=== PATIENT | male | born 1990 | race Caucasian/White ===

== ENCOUNTER 2022-08-18 10:48 | Outpatient (CLI) | payer BC, OTHER, SELFPAY ==
[2022-08-18 16:49] LABS: Basophils Percent Auto 0.5 % (0.2-1.2); Eosinophils Absolute Auto 0.1 K/mm3 (0-0.3); Hemoglobin 16.1 g/dL (14.0-18.0); Immature Granulocyte Absolute 0.01 K/mm3 (0.00-0.031); Immature Granulocyte Percent A 0.2 % (0-0.5); Lymphocytes Absolute Auto 2.22 K/mm3 (0.9-3.2); Lymphocytes Percent Auto 33.9 % (18.3-44.2); Mean Corpuscular HGB Conc 32.9 g/dl (32-36); Mean Corpuscular Hemoglobin 29.1 pg (26-34); Mean Corpuscular Volume 88.6 fl (80-100); Mean Platelet Volume 10.8 fl (7.4-10.4); Monocytes Absolute Auto 0.7 K/mm3 (0.1-0.6); Monocytes Percent Auto 10.2 % (2.6-8.5); Neutrophils Absolute Auto 3.5 K/mm3 (1.3-6.7); Neutrophils Percent Auto 53.2 % (45.5-73.1); Platelet Count Result 253 k/mm3 (150-375); Red Blood Count 5.53 M/mm3 (4.6-6.20); Red Cell Distribution Width 12.7 % (11.5-14.5); White Blood Count 6.5 K/mm3 (4.5-10.0)
[2022-08-18 17:43] LABS: Alanine Aminotransferase 25 U/L (6-50); Albumin Level 4.6 g/dL (3.5-5.1); Alkaline Phosphatase 64 U/L (38-126); Anion Gap 8 mmol/L (8-16); Aspartate Amino Transferase 46 U/L (17-59); Bilirubin,Total 0.8 mg/dL (0.2-1.3); Blood Urea Nitrogen 20 mg/dL (9-20); Calcium 9.2 mg/dL (8.4-10.2); Carbon Dioxide 31 mmol/L (22-30); Chloride 102 mmol/L (98-107); Cholesterol 189 mg/dL (0-200); Estimated Glomerular Filt Rate > 60; Glucose 78 mg/dL (65-110); HDL Direct 39 mg/dL; Potassium 4.7 mmol/L (3.4-5.0); Sodium 141 mmol/L (137-145); Triglycerides 155 mg/dL (<150)
[2022-08-18 17:54] LABS: LDL Cholesterol Direct 105 mg/dL
[2022-08-18 18:01] LABS: Vitamin D 25 Hydroxy 25.3 ng/mL
[2022-08-18 18:49] LABS: Folic Acid 12.1 ng/mL (2.76->20)
== END 2022-08-18 10:49 | disposition home or self-care (01) ==
LOC: ANHGOSHLAB 10:54
PROVIDERS: PCP Family Medicine; Visit Provider Physician Assistant
DX: F32.A Depression, unspecified (principal); Z79.899 Other long term (current) drug therapy; E55.9 Vitamin D deficiency, unspecified
CPT/HCPCS: 36415; 80053; 80061; 82306; 82607; 82746; 84443; 85025